=== PATIENT | male | born 1985 ===

== ENCOUNTER 2021-01-16 10:54 | Outpatient (CLI) | payer SELFPAY ==
--- NOTE | 2021-01-16 12:59 | XRAY Report ---
PROCEDURE: Finger(s) LT INDICATIONS: FRACTURE OF LEFT MIDDLE FINGER TECHNIQUE: AP hand, 2 views of the middle finger(s) acquired. COMPARISON: None FINDINGS: Bones: Comminuted and minimally displaced fracture involving mid to distal third middle phalangeal sh aft with up to 1.5 mm diastases at fracture site. No other fracture or dislocation is seen. No suspic ious bony lesions. Soft tissues: No suspicious soft tissue calcifications. IMPRESSION: Acute comminuted minimally displaced third middle phalangeal shaft fracture as above. Reviewed by: Lusi Gillespie MD on 01/16/2021 12:57 PM PDT Approved by: Luis Gillespie MD on 01/16/2021 12:57 PM PDT Station ID: [id number]
== END 2021-01-16 23:59 | disposition home or self-care (01) ==
LOC: DI.N 10:54
PROVIDERS: ATTEND Physician Assistant Medical
DX: S62.623A Displaced fracture of middle phalanx of left middle finger, initial encounter for closed fracture (principal)